=== PATIENT | male | born 1975 | race Caucasian/White ===

== ENCOUNTER 2016-08-21 08:38 | Emergency (ER) | payer SELFPAY ==
[~2016-08-21 08:38] MED LIST: AMOX500C PO; CYCL-331 PO; HYDR-79 PO; HYDR-971 PO; IBUP200T43 PO; INDO25CA PO; PARO20TA99 PO; PENI500T PO; PRED20TA PO; TRAM-48 PO; TRAM50TA PO
--- NOTE | 2016-08-21 08:55 | ED.ADGEN ---
Past History Past Medical History: Other (depression, anxiety, chronic neck/back/dental pain ) Additional Past Medical Histor: Dental caries. Chronic back pain. 02/26/2013 DX with Right shoulder injury. Additional Past Surgical Histo: circumcision and wisdom teethe pulled. Smoking: Greater than 1 pack/day Alcohol Use: None Drug Use: None Adult General Chief Complaint Chief Complaint neck pain HPI HPI Pt is 40/M to ED c/o neck pain. Pt c/o neck pain injury initially dating to 2012, states he slipped on ice past april aggravating the injury. No new trauma/strenuous activity, no new/ worsening sx, complaint is chronic in nature and admittedly pt just out of pain meds for this condition. Recent MRI in [place], [place] pt has empty bottles of prednisone and oxycodone with him. States he cannot get in with pain management due to lack of insurance. Pt lives in [place] but drove to this ED. Five prior ED visits for R shoulder/neck pain, 5 prior visits dental pain. At April ED visit pt was told by ERP no further narcotic meds would be prescribed for these complaints must f/u PCP or pain management. Smokes > 1PPD Denies recent injury, sx consistent with prior, no numbness/tingling/weakness/ radiating sx. VS not indicative of severe pain HR 78bpm Review of Systems Review of Systems Constitutional: Denies fever or chills [] Eyes: Denies change in visual acuity, redness, or eye pain [] HENT: Denies nasal congestion or sore throat [] Respiratory: Denies cough or shortness of breath [] Cardiovascular: No additional information not addressed in HPI [] GI: Denies abdominal pain, nausea, vomiting, bloody stools or diarrhea [] : Denies dysuria or hematuria [] Musculoskeletal: see HPI Integument: Denies rash or skin lesions [] Neurologic: Denies headache, focal weakness or sensory changes [] Endocrine: Denies polyuria or polydipsia [] Family History Family History n/c Current Medications Current Medications Current Medications Medications (Trade) Dose Ordered Sig/Jermaine Start Time Stop Time Status Last Admin Dose Admin Ketorolac Tromethamine (Toradol) 60 mg 1X ONCE 08/21/16 09:00 08/21/16 09:01 UNV Allergies Allergies Allergies Coded Allergies Type Severity Reaction Last Updated Verified No Known Drug Allergies 03/14/13 No Physical Exam Physical Exam Constitutional: Well developed, well nourished, no acute distress, non-toxic appearance. [] HENT: Normocephalic, atraumatic, bilateral external ears normal, oropharynx moist, no oral exudates, nose normal. [] Eyes: PERRLA, EOMI, conjunctiva normal, no discharge. [] Neck: holds head L sidebending despite right neck muscle spasm complaint. No hypertonicity or midline pain, no swell/erythema ROM not tested due to pt discomfort Cardiovascular:Heart rate regular rhythm, no murmur [] Lungs & Thorax: Bilateral breath sounds clear to auscultation [] Abdomen: Bowel sounds normal, soft, no tenderness, no masses, no pulsatile masses. [] Skin: Warm, dry, no erythema, no rash. [] Back: No tenderness, no CVA tenderness. [] Extremities: No tenderness, no cyanosis, no clubbing, ROM intact, no edema. [] Neurologic: Alert and oriented X 3, normal motor function, normal sensory function, no focal deficits noted. Upper extremities neurovascularly intact b/l[ ] Psychologic: Affect normal, judgement normal, mood normal. [] Current Patient Data Vital Signs Vital Signs Date Time Temp Pulse Resp B/P (MAP) Pulse Ox O2 Delivery O2 Flow Rate FiO2 08/21/16 08:52 98.2 78 18 99 Room Air EKG EKG [] Radiology/Procedures Radiology/Procedures [] Course & Med Decision Making Course & Med Decision Making Pertinent Labs and Imaging studies reviewed. (See chart for details) []Pt complains of right sided neck spasm but holds his head in full left sidebending position. I discussed narcotic dependence, chronic pain management , and need to follow up with pain management or PCP. Pt advised February no further narcotics. Advised to stop smoking. Final Impression Final Impression [] Problems: Dragon Disclaimer Dragon Disclaimer This electronic medical record was generated, in whole or in part, using a voice recognition dictation system. Departure Time of Disposition: 09:01 Disposition: 01 HOME, SELF-CARE Diagnosis: chronic neck pain, tobaccoism Condition: GOOD Patient Instructions: Chronic Pain Management, Smoking Cessation Additional Instructions: Activity as tolerated. Heating pad 20minutes 4-6 times daily followed by gentle stretching. OTC tylenol for baseline pain. Rx: prednisone 20mg #10, Skelaxin #15 Stop smoking, seek medical assistance if necessary. Must follow up with your doctor or pain management for narcotic pain medications if necessary. Return to ED with other emergent conditions as needed. PAT LEGER DO August 21, 2016 08:55
[2016-08-21] MEDS ORDERED: KETOROLAC 60 MG/2 ML VIAL. IM ONE (09:00)
[2016-08-21] MEDS ORDERED: PRED20TA PO (09:00)
[2016-08-21] MEDS ORDERED: META-21 PO (09:00)
[2016-08-21 09:15] VITALS: BP 134/78
== END 2016-08-21 09:15 | disposition home or self-care (01) ==
LOC: ER 08:38
DX: G89.29 Other chronic pain (principal); M54.2 Cervicalgia; F17.210 Nicotine dependence, cigarettes, uncomplicated
CPT/HCPCS: 96372; 99283; J1885